=== PATIENT | female | born 2000 | race American Indian/Alaskan Native ===

== ENCOUNTER 2019-08-13 00:34 | Inpatient (IN) | payer OTHER ==
[2019-08-13] MEDS ORDERED: TERBUTALINE 1 MG/1 ML INJ SUB-Q PRN (01:18)
[2019-08-13] MEDS ORDERED: ONDANSETRON 4 MG/2 ML INJ IV PRN (01:18)
[2019-08-13] MEDS ORDERED: MINERAL OIL 30 ML ORAL LIQD PO PRN (01:18)
[2019-08-13] MEDS ORDERED: LIDOCAINE (2%) 20 MG/1 ML VIAL 20 ML MDV INFILTRATI ONE (01:18)
[2019-08-13] MEDS ORDERED: ePHEDrine SULFATE 50 MG/1 ML INJ IV PRN ×2 (01:18→19:59)
[2019-08-13] MEDS ORDERED: AMPICILLIN/NS 2 GM/100 ML 2 GM/100 ML BAG IV ONE (01:18)
[2019-08-13] MEDS ORDERED: TERBUTALINE 1 MG/1 ML INJ IVP PRN (01:18)
[2019-08-13] MEDS: LACTATED RINGERS 1,000 ML IV SCH ×4 (01:40→21:41)
[2019-08-13] MEDS ORDERED: OXYTOCIN DRIP 30 UNITS/500 ML BAG IV SCH (02:00)
[2019-08-13] MEDS ORDERED: OXYTOCIN 20 UNIT/1000ML DRIP 20 UNITS/1,000 ML BAG IV SCH (02:00)
[2019-08-13 02:15] LABS: Hematocrit 35.8 % (30.3-42.9); Hemoglobin 11.4 gm/dl (10.1-14.3); Mean Corpuscular HGB Conc 32 % (30-34); Mean Corpuscular Volume 80 fl (79-97); Platelet Count 185 K/mm3 (140-440); Red Blood Count 4.49 M/mm3 (3.65-5.03); Red Cell Distribution Width 16.6 % (13.2-15.2)
[2019-08-13] MEDS: BUTORPHANOL 2 MG/1 ML INJ IV PRN ×4 (02:42→15:53)
[2019-08-13] MEDS: OXYTOCIN DRIP 30 UNITS/500 ML BAG IV SCH ×3 (06:45→14:48)
[2019-08-13] MEDS: AMPICILLIN/NS 1 GM/50 ML 1 GM/50 ML BAG IV SCH ×4 (06:45→21:03)
[2019-08-13] MEDS ORDERED: AMPICILLIN/NS 1 GM/50 ML 1 GM/50 ML BAG ONE (06:52)
[2019-08-13] MEDS ORDERED: AMPICILLIN 1 GM in SODIUM CHLORIDE 0.9% 50 ML IV SCH (07:00)
--- NOTE | 2019-08-13 09:04 | History and Physical Report ---
History of Present Illness Date of examination: 08/13/19 Date of admission: 08/13/19 01:19 Chief complaint: SROM History of present illness: Pt is a 19 yo at 38w6d who presents with leaking fluid since last night. She reports positive movement and denies vaginal bleeding. Occasional contractions. She has received care with [facility]. Her has been complicated by lifestyle-controlled GDM. She is a carrier for sickle cell trait, and is GBS positive. Past History Past Medical History: other (Gestational diabetes) Past Surgical History: other (oral surgery) Social history: no significant social history - Obstetrical History Expected Date of Delivery: 08/21/19 Actual Gestation: 38 Week(s) 6 Day(s) : 1 Para: 0 Medications and Allergies Allergies Allergy/AdvReac Type Severity Reaction Status Date / Time No Known Allergies Allergy Verified 08/13/19 00:55 Active Meds: Active Medications Butorphanol Tartrate (Stadol) 2 mg IV Q2H PRN PRN Reason: Labor Pain Last Admin: 08/13/19 05:50 Dose: 2 mg Documented by: Ephedrine Sulfate (Ephedrine Sulfate) 10 mg IV Q2M PRN PRN Reason: Hypotension Oxytocin/Sodium Chloride (Pitocin/Ns 20 Unit/1000ml Drip) 20 units in 1,000 mls @ 125 mls/hr IV DIRECT JAMILA Oxytocin/Sodium Chloride (Pitocin/Ns 30 Unit/500ml) 30 units in 500 mls @ 1 mls/hr IV TITR JAMILA; Protocol Oxytocin/Sodium Chloride (Pitocin/Ns 30 Unit/500ml) 30 units in 500 mls @ 0 mls/hr IV TITR JAMILA; Protocol Last Admin: 08/13/19 06:45 Dose: 2 mls/hr, 2 mls/hr Documented by: Lactated Ringer's (Lactated Ringers) 1,000 mls @ 125 mls/hr IV DIRECT JAMILA Last Admin: 08/13/19 05:50 Dose: 125 mls/hr Documented by: Ampicillin Sodium (Ampicillin/Ns 1 Gm/50 Ml) 1 gm in 50 mls @ 100 mls/hr IV Q4H JAMILA Last Admin: 08/13/19 06:45 Dose: 100 mls/hr Documented by: Mineral Oil (Mineral Oil) 30 ml PO QHS PRN PRN Reason: Constipation Ondansetron HCl (Zofran) 4 mg IV Q8H PRN PRN Reason: Nausea And Vomiting Terbutaline Sulfate (Brethine) 0.25 mg SUB-Q ONCE PRN PRN Reason: Hyperstimulation/Hypertonicity Terbutaline Sulfate (Brethine) 0.25 mg IVP ONCE PRN PRN Reason: Hyperstimulation/Hypertonicity Review of Systems All systems: negative Genitourinary: leakage of fluid, contractions, no vaginal bleeding, no vaginal discharge - Vital Signs Vital signs: Vital Signs Pulse Pulse Ox 86 98 08/13/19 00:42 08/13/19 00:42 Temp Pulse Resp BP Pulse Ox 97.4 F L 71 16 132/73 98 08/13/19 08:05 08/13/19 08:05 08/13/19 08:05 08/13/19 08:05 08/13/19 07:52 - Physical Exam Genitourinary (Female): Positive: normal external genitalia, normal perenium Vagina: Positive: normal moisture Uterus: Positive: enlarged (gravid) - Obstetrical FHR: category 1 Uterine Contraction Monitor Mode: External Cervical Dilatation: 1 Cervical Effacement Percentage: 0 station: -4 Uterine Contraction Frequency (min): 2-3 Uterine Contraction Duration: 60 sec Uterine Contraction Pattern: Regular Uterine Tone Measurement Phase: Contraction Uterine Contraction Intensity: Moderate Results Result Diagrams: 08/13/19 01:19 Abnormal lab results 08/13/19 Range/Units 01:19 WBC 11.9 H (4.5-11.0) K/mm3 MCH 25 L (28-32) pg RDW 16.6 H (13.2-15.2) % All other labs normal. Assessment and Plan A: 19 yo at 38w6d EGA SROM Cervix unfavorable for labor Lifestyle controlled GDM Sickle cell trait GBS positive P: Admit for augmentation of labor- Pitocin Ampicillin prophylaxis Blood glucose q4 hours in labor Anticipate
--- NOTE | 2019-08-13 13:05 | Event Note ---
Date: 08/13/19 Regular uterine contractions noted without cervical change. SVE 1/thick/high. Discussed risks/benefits/alternatives to placing IUPC. Pt consents to IUPC placement. Placed in sterile fashion, pt tolerated well. FHT category 1. Plan to increase Pitocin to adequate contractility.
[2019-08-13] MEDS ORDERED: NALOXONE 2 MG/2 ML INJ IV PRN (19:59)
[2019-08-13] MEDS ORDERED: DEXMEDETOMIDINE 200 MCG/2 ML VIAL IV ONE (20:04)
[2019-08-13] MEDS: fentaNYL-BUPIV 2 MCG/ML-0.125% 200 MCG/100 ML BAG EPIDURAL SCH (20:45)
--- NOTE | 2019-08-13 21:16 | Anesthesia Consultation ---
Anesthesia Consult and Med Hx Date of service: 08/13/19 - Airway Anesthetic Teeth Evaluation: Good ROM Head & Neck: Adequate Mental/Hyoid Distance: Adequate Mallampati Class: Class II Intubation Access Assessment: Probably Good - Pulmonary Exam CTA: Yes - Cardiac Exam Cardiac Exam: RRR - Pre-Operative Health Status ASA Pre-Surgery Classification: ASA2 Proposed Anesthetic Plan: Epidural - Pulmonary Hx Smoking: No Hx Asthma: No Hx Respiratory Symptoms: No SOB: No COPD: No Home Oxygen Therapy: No Hx Pneumonia: No Hx Sleep Apnea: No - Cardiovascular System Hx Hypertension: No Hx Coronary Artery Disease: No Hx Heart Attack/AMI: No Hx Angina: No Hx Percutaneous Transluminal Coronary Angioplasty (PTCA): No Hx Cardia Arrhythmia: No Hx Pacemaker: No Hx Internal Defibrillator: No Hx Valvular Heart Disease: No Hx Heart Murmur: No Hx Peripheral Vascular Disease: No - Central Nervous System Hx Neuromuscular Disorder: No Hx Seizures: No CVA: No Hx Back Pain: No Hx Psychiatric Problems: No - Gastrointestinal Hx Ulcer: No Hx Gastroesophageal Reflux Disease: Yes - Endocrine Hx Renal Disease: No Hx End Stage Renal Disease: No Hx Cirrhosis: No Hx Liver Disease: No Hx Insulin Dependent Diabetes: No Hx Non-Insulin Dependent Diabetes: Yes (Gestational) Hx Thyroid Disease: No Hx Hypothyroidism: No Hx Hyperthyroidism: No - Hematic Hx Anemia: No Hx Sickle Cell Disease: Yes (TRAIT) - Other Systems Hx Alcohol Use: No Hx Substance Use: No Hx Cancer: No Hx Obesity: Yes
[2019-08-14] MEDS: AMPICILLIN/NS 1 GM/50 ML 1 GM/50 ML BAG IV SCH (01:17)
[2019-08-14] MEDS: LACTATED RINGERS 1,000 ML IV SCH ×2 (01:19→05:21)
[2019-08-14] MEDS: fentaNYL-BUPIV 2 MCG/ML-0.125% 200 MCG/100 ML BAG EPIDURAL SCH (04:45)
[2019-08-14] MEDS ORDERED: AMPICILLIN/NS 2 GM/100 ML 2 GM/100 ML BAG IV SCH (05:08)
[2019-08-14] MEDS ORDERED: METOCLOPRAMIDE 10 MG/2 ML INJ ONE (06:09)
[2019-08-14] MEDS ORDERED: BICITRA ORAL LIQD 30ML ONE (06:09)
[2019-08-14] MEDS ORDERED: FAMOTIDINE 20 MG/2 ML INJ IV ONE ×2 (06:09→07:22)
[2019-08-14] MEDS ORDERED: ceFAZolin/Water 2 GM/20 ML 0 GM/0 ML SYRINGE IV ONE (06:10)
--- NOTE | 2019-08-14 07:19 | Anesthesia Day of Surgery ---
Anesthesia Day of Surgery - Day of Surgery Patient Examined: Yes Patient H&P Reviewed: Yes Patient is NPO: Yes
[2019-08-14] MEDS ORDERED: ceFAZolin/Water 2 GM/20 ML 2 GM/20 ML SYRINGE IV ONE (07:22)
[2019-08-14] MEDS ORDERED: BICITRA ORAL LIQD 30ML PO NR (07:30)
[2019-08-14] MEDS ORDERED: FAMOTIDINE 20 MG/2 ML INJ IV NR (07:30)
[2019-08-14] MEDS ORDERED: METOCLOPRAMIDE 10 MG/2 ML INJ IV NR (07:30)
[2019-08-14] MEDS ORDERED: ceFAZolin/Water 2 GM/20 ML 2 GM/20 ML SYRINGE IV NR (07:30)
[2019-08-14] MEDS ORDERED: SODIUM BICARB 8.4% 50 MEQ/50 ML VIAL IV ONE (07:37)
[2019-08-14] MEDS ORDERED: DEXMEDETOMIDINE 200 MCG/2 ML VIAL IV ONE (07:37)
[2019-08-14] MEDS ORDERED: LIDOCAINE 2%/EPINEPHRINE 1:200,000 VIAL (20 ML) INFILTRATI ONE (07:37)
[2019-08-14] MEDS ORDERED: WATER FOR IRRIG STERILE 1,500 ML BOTTLE IR ONE (08:00)
[2019-08-14] MEDS ORDERED: OXYTOCIN 20 UNIT/1000ML DRIP 20 UNITS/1,000 ML BAG IV SCH ×2 (08:00→10:46)
[2019-08-14] MEDS ORDERED: SODIUM CHLORIDE 0.9% IRR 1,500 ML BOTTLE IR ONE (08:00)
[2019-08-14] MEDS ORDERED: LACTATED RINGERS 1,000 ML IV SCH ×2 (08:00→14:00)
[2019-08-14] MEDS ORDERED: KETOROLAC 30 MG/1 ML INJ ONE (08:15)
[2019-08-14] MEDS ORDERED: METHYLERGONOVINE MALEATE 0.2 MG/ML VIAL IM ONE ×3 (08:18→09:00)
[2019-08-14] MEDS ORDERED: OXYTOCIN 10 UNIT/1 ML INJ ONE (08:43)
--- NOTE | 2019-08-14 08:59 | Procedure Note ---
OB Delivery Note - Delivery Date of Delivery: 08/14/19 Surgeon: LIGIA WHITT Estimated blood loss: other (800 mL) - Section Preop diagnosis: other (chorioamnionitis) Postop diagnosis: same section procedure: section, primary low transverse Disposition: PACU Complications: uterine atony Narrative: Please see operative report - A at 1 minute: 8 at 5 minutes: 9 Gender: Male (3586g (7lb 14 oz) @ 0824 am)
--- NOTE | 2019-08-14 09:00 | Operative Report ---
Operative Report Operative Report: Date of procedure: August 14, 2019 Preoperative diagnosis: 1) IUP at 39w0d 2) Prolonged ROM 3) Chorioamnionitis Postoperative diagnosis: Same 4) Uterine Atony Procedure: Primary low transverse section Surgeon: Jeni Feldman M.D. Anesthesia: Regional Findings: 1) Viable male , Apgars 8 and 9, weight 3586 g, (7 lb 14 oz) in cephalic presentation. 2) Normal-appearing uterus ovaries and tubes Estimated blood loss: 800 mL IV fluids:1000 mL Urine output: 100 mL, clear at the end of the procedure Drains: Gutierrez to gravity; placenta Specimens: None Medications: Methergine 0.2 mg IM Complications:None. Counts correct x 3 Disposition: Stable to PACU Indication for procedure: Pt is a 19 year old primigravida at 39w0d admitted with SROM, prolonged ROM who developed chorioamnionitis. The decision was made to proceed to delivery. Operation in detail: After the risks, benefits, alternatives and complications were explained to the patient she gave informed consent for the procedure. She was subsequently taken to the operating room where regional anesthesia was noted to be adequate. She was subsequently placed in the dorsal supine position with leftward tilt and prepped and draped in a normal sterile fashion. heart tones were noted prior to incision. A timeout was performed. A Pfannenstiel skin incision was made with the knife and carried down to the layer of the fascia with the Bovie. The fascia was incised in the midline and the fascial incision was extended bilaterally with the Bovie. The fascial incision was then stretched. The rectus muscles were then in the midline and partially transected for adequate visualization. The peritoneum was then entered bluntly. The peritoneal incision was extended with good visualization of the bladder. The peritoneal incision was then stretched. An All retractor was placed. The bladder blade was then placed. A transverse incision was made in the lower uterine segment with a knife and extended bilaterally with the bandage scissors. Amniotomy was performed with egress of clear fluid. head delivered with some difficulty, followed by shoulders and body. bulb suctioned at delivery. Cord clamped and cut. handed to NICU staff in attendance. Cord blood was collected. The placenta was then delivered manually. The uterus was then exteriorized and cleared of all clots and debris. The hysterotomy was then reapproximated with 0 Vicryl in a running locked fashion. A second layer of the same suture was used in imbricating fashion. The hysterotomy was inspected and hemostasis was noted. The gutters were irrigated and cleared of all clots and debris. The hysterotomy was again inspected and noted to be hemostatic. Surgicel was placed over the hysterotomy. The uterus was placed back into the peritoneal cavity. The All retractor was removed. The peritoneum was reapproximated with 2-0 Vicryl in a running fashion incorporating the rectus muscles. Surgicel was placed over the rectus muscles. The fascia was reapproximated with 0 Vicryl in a running fashion. The subcutaneous tissue was reapproximated with 2-0 Vicryl in a running fashion. The skin was reapproximated with 4-0 Vicryl in a subcuticular fashion. The incision was then covered with steri strips and a pressure dressing. The procedure was then ended. The patient tolerated the procedure well and was taken to the PACU in stable condition. All instrument, lap, and needle counts were correct 3.
--- NOTE | 2019-08-14 09:37 | Post Anesthesia Evaluation ---
- Post Anesthesia Evaluation Patient Participated: Yes Airway Patent: Yes Stable Respiratory Function: Yes Nausea/Vomiting: No Temp > 96.8F: Yes Pain Manageable: Yes Adequeate Hydration: Yes Anesthesia Complications: No Block Receding Appropriately: Yes
[2019-08-14] MEDS ORDERED: NALOXONE 0.4 MG/1 ML INJ IV PRN (10:46)
[2019-08-14] MEDS ORDERED: WITCH HAZEL/ GLYCERIN PAD TP PRN (10:46)
[2019-08-14] MEDS ORDERED: MORPHINE 4 MG/1 ML INJ IV PRN (10:46)
[2019-08-14] MEDS ORDERED: LANOLIN/ZINC/DIMETHICONE (LANSINOH) 7 GM TP PRN (10:46)
[2019-08-14] MEDS ORDERED: IBUPROFEN 800 MG TAB PO PRN (10:46)
[2019-08-14] MEDS ORDERED: MORPHINE 2 MG/1 ML INJ IV PRN (10:46)
[2019-08-14] MEDS ORDERED: SIMETHICONE 80 MG CHEW TAB PO PRN (10:46)
[2019-08-14] MEDS ORDERED: MAGNESIUM HYDROXIDE (MOM) ORAL LIQD UDC PO PRN (10:46)
[2019-08-14] MEDS: KETOROLAC 30 MG/1 ML INJ IV SCH ×2 (11:45→18:35)
[2019-08-14] MEDS: ceFAZolin/NS 1 GM/50 ML 1 GM/50 ML BAG IV SCH ×2 (17:05→23:31)
[2019-08-14] MEDS: oxyCODONE /ACETAMINOPHEN 5-325MG TAB PO PRN (21:31)
[2019-08-14 23:08] LABS: Hematocrit 32.4 % (30.3-42.9); Hemoglobin 10.6 gm/dl (10.1-14.3)
[2019-08-15] MEDS: KETOROLAC 30 MG/1 ML INJ IV SCH ×2 (00:16→06:00)
[2019-08-15] MEDS: oxyCODONE /ACETAMINOPHEN 5-325MG TAB PO PRN ×4 (04:34→22:36)
[2019-08-15] MEDS ORDERED: TETANUS,DIPH,PERTUSS(ACELL) VACCINE 0.5 ML SYRINGE IM ONE (06:00)
[2019-08-15] MEDS ORDERED: MEASLES, MUMPS & RUBELLA 12,500 UNIT/0.5 ML VACCINE SUB-Q ONE (09:06)
[2019-08-15] MEDS: FERROUS SULFATE 325 MG TAB PO SCH (10:10)
--- NOTE | 2019-08-15 10:58 | Progress Note ---
Assessment and Plan - Patient Problems (1) delivery delivered Current Visit: Yes Status: Acute Plan to address problem: Patient remains afebrile Continue you to monitor closely. Routine postoperative care Subjective - Subjective Date of service: 08/15/19 Interval history: Patient without any significant complaints. She reports ambulating in the room and her pain being better controlled. She has tolerated a clear diet. The patient has been able to void. Patient reports: appetite normal, voiding normally, pain well controlled Objective - Vital Signs Latest vital signs: Vital Signs Temp Pulse Resp BP Pulse Ox 08/15/19 08:20 97.3 F L 82 16 109/66 99 08/15/19 04:35 97.9 F 101 H 18 127/69 99 08/15/19 00:55 97.5 F L 82 18 107/61 95 08/14/19 21:25 98.4 F 83 18 135/86 98 08/14/19 17:15 99.8 F H 91 H 18 152/86 96 08/14/19 12:56 98.1 F 74 16 139/91 97 Intake and Output 08/14/19 08/15/19 08/15/19 22:59 06:59 14:59 Intake Total 370 Output Total 1600 Balance -1230 Intake: IV 50 ANCEF/NS 1 GM/50 ML 1 gm 50 In 50 ml @ 100 mls/hr IV Q8H [facility] Rx#:[id number] Oral 320 Output: Urine 1600 Indwelling Catheter 1600 Other: Total, Intake Amount 320 Total, Output Amount 500 Estimated Blood Loss 800 - Exam Abdomen: Present: normal appearance, soft Incision: Present: dressed - Labs Labs: Abnormal lab results 08/15/19 Range/Units 01:05 POC Glucose 129 H (70-105)
[2019-08-16] MEDS: oxyCODONE /ACETAMINOPHEN 5-325MG TAB PO PRN (06:31)
--- NOTE | 2019-08-16 07:19 | Progress Note ---
Assessment and Plan - Patient Problems (1) delivery delivered Current Visit: Yes Status: Acute Plan to address problem: Patient doing well Discharge home Subjective - Subjective Date of service: 08/16/19 Interval history: Patient without any significant complaints. She reports ambulating in the room and her pain being better controlled. She has tolerated a clear diet. The patient has been able to void. Patient reports: appetite normal, voiding normally, pain well controlled : doing well Objective - Vital Signs Latest vital signs: Vital Signs Temp Pulse Resp BP Pulse Ox 08/16/19 06:31 18 08/15/19 23:07 98.6 F 80 20 113/57 98 08/15/19 20:33 18 08/15/19 16:31 97.6 F 105 H 20 125/67 99 08/15/19 08:20 97.3 F L 82 16 109/66 99 - Exam Abdomen: Present: normal appearance, soft Uterus: Present: normal, firm Incision: Present: normal
--- NOTE | 2019-08-16 07:20 | Discharge Summary ---
Providers - Providers Date of Admission: 08/13/19 01:19 Date of discharge: 08/16/19 Attending physician: MARIE ZARAGOZA Primary care physician: MARIE ZARAGOZA Hospitalization Reason for admission: rupture of membranes Delivery: Procedure: section, primary low transverse Incision: normal Discharge diagnosis: IUP at term delivered Hospital course: Patient admitted with gross rupture membranes. Her intrapartum course is complicated by prolonged rupture membranes and chorioamnionitis. The patient underwent a primary delivery. Postoperative course was uneventful. Condition at discharge: Good Disposition: DC-01 TO HOME OR SELFCARE - Discharge Diagnoses (1) delivery delivered Status: Acute Plan - Discharge Medications Prescriptions: Ibuprofen [Motrin] 800 mg PO Q8HR PRN #60 tablet PRN Reason: Pain, Mild (1-3) oxyCODONE /ACETAMINOPHEN [Percocet 5/325] 1 tab PO Q6HR PRN #30 tablet PRN Reason: Pain - Provider Discharge Summary Activity: no sex for 6 weeks, no heavy lifting 4 weeks, no strenuous exercise Diet: routine Instructions: routine Additional instructions: [] Smoking cessation referral if applicable(refer to patient education folder for contact #) [] Refer to [facility] Booklet Call your doctor immediately for: * Fever > 100.5 * Heavy vaginal bleeding ( >1 pad per hour) * Severe persistent headache * Shortness of breath * Reddened, hot, painful area to leg or breast * Drainage or odor from incision. * Keep incision clean and dry at all times and follow doctor's instructions regarding bathing/showering Schedule follow-up in 2 weeks - Follow up plan
[2019-08-16] MEDS: FERROUS SULFATE 325 MG TAB PO SCH (09:21)
[2019-08-16 16:26] VITALS: BP 134/86
== END 2019-08-16 15:07 | disposition home or self-care (01) | DRG 765 ==
LOC: TRG 00:34 → LD 01:19 → OB 08-14 11:30
PROVIDERS: ADMIT Obstetrics & Gynecology; ATTEND Obstetrics & Gynecology
PROC: 10H07YZ Insertion of Other Device into Products of Conception, Via Natural or Artificial Opening (ICD-10-PCS; 2019-08-13)
PROC: 3E0234Z Introduction of Serum, Toxoid and Vaccine into Muscle, Percutaneous Approach (ICD-10-PCS; principal; 2019-08-14)
PROC: 10D00Z1 Extraction of Products of Conception, Low, Open Approach (ICD-10-PCS; 2019-08-14)
PROC: 3E0134Z Introduction of Serum, Toxoid and Vaccine into Subcutaneous Tissue, Percutaneous Approach (ICD-10-PCS; 2019-08-15)
DX: O42.92 Full-term premature rupture of membranes, unspecified as to length of time between rupture and onset of labor (principal); O41.1230 Chorioamnionitis, third trimester, not applicable or unspecified; O99.824 Streptococcus B carrier state complicating childbirth; O99.02 Anemia complicating childbirth; D57.3 Sickle-cell trait; O99.214 Obesity complicating childbirth; E66.9 Obesity, unspecified; O99.62 Diseases of the digestive system complicating childbirth; O62.2 Other uterine inertia; O24.429 Gestational diabetes mellitus in childbirth, unspecified control; K21.9 Gastro-esophageal reflux disease without esophagitis; Z37.0 Single live birth; Z3A.39 39 weeks gestation of pregnancy; Z23 Encounter for immunization
CPT/HCPCS: 36415; 59025; 82962; 85014; 85018; 85027; 86850; 86900; 86901; 87040; 88307; 90707; G0378; J0290; J0595; J0690; J1885; J2210; J2270; J2590; J2765; J3490; J7120; Q0177